=== PATIENT | female | born 1995 | race Caucasian/White ===

== ENCOUNTER 2018-05-19 00:55 | Emergency (ER) | payer OTHER ==
[~2018-05-19] VITALS: Ht 157.5 cm; Wt 61.7 kg
[2018-05-19 00:55] VITALS: BP_SYST 135
--- NOTE | 2018-05-19 00:55 | NUR ---
Patient to ER bed [facility] 1.
[2018-05-19] MEDS ORDERED: ABILIFY PO (01:15)
--- NOTE | 2018-05-19 01:15 | NUR ---
ER Dr. Hastings at bedside examining patient.
[2018-05-19] MEDS ORDERED: LITHIUM PO (01:16)
--- NOTE | 2018-05-19 01:17 | NUR ---
Written and verbal consent obtained from patient for blood alcohol, name and verified by patient. Disinfected patient's skin with iodine that did not contain alcohol or other volatile organic compound. Collected the blood from the subject named by venipuncture, in the presence of Officer Todd Zap[place], [id number]. Used a sterile, dry hypodermic needle and dry vacuum blood collection. The dry vacuum blood collection was supplied by the officer named above. Withdrew a specimen of blood from RAC of the subject named above. Inverted the blood tube several times to ensure that the preservative and anticoagulant were thoroughly mixed in the blood specimen. I initialed the blood tube label for identification. The labeled blood tube was handed directly to the Officer named above. The blood tube stopper remained in place while I had possession of the blood tube. The Officer placed tube into envelope and sealed it in my presence. Envelope initialed by myself and Officer named above. Patient tolerated well, bandage applied, and bleeding controlled.
--- NOTE | 2018-05-19 01:46 | NUR ---
Pt was ready to be discharged, Officer Todd Zapata stated, they will be releasing her to [facility] due to no available booking facility. Pt's mother was called 14 times with no response. Pt is falling asleep against the wall. Pt placed in [facility] and is sleeping comfortably. Will be calling patient's mother to pick her up. Will continue to monitor.
--- NOTE | 2018-05-19 02:48 | NUR ---
Spoke with mother over the phone and stated she will be picking up daughter right now. Mother is coming from [facility].
[2018-05-19 03:09] VITALS: BP_SYST 127
--- NOTE | 2018-05-19 03:09 | NUR ---
Patient given written and verbal discharge instructions and verbalizes understanding. ER MD discussed with patient the results and treatment provided. Patient in stable condition. ID arm band removed. No Rx given. Patient educated on pain management and to follow up with PMD. Pain Scale 0. Opportunity for questions provided and answered. Medication side effect fact sheet provided.
== END 2018-05-19 03:09 ==
LOC: SED 00:55
DX: Z02.89 Encounter for other administrative examinations (principal); V43.52XA Car driver injured in collision with other type car in traffic accident, initial encounter; Y93.89 Activity, other specified; Y92.411 Interstate highway as the place of occurrence of the external cause; Y99.8 Other external cause status
CPT/HCPCS: 99283